=== PATIENT | female | born 1985 | race Two or more races ===

== ENCOUNTER 2020-05-12 14:13 | Emergency (ER) | payer BC ==
--- NOTE | 2020-05-12 15:17 | EDM.PDOC ---
ED HPI GENERAL MEDICAL PROBLEM - General Chief Complaint: Genitourinary Problem Stated Complaint: CANNOT PEE LOTS OF PAIN IN BACK 12 WEEKS PG Time Seen by Provider: 05/12/20 15:05 Source of Information: Reports: Patient History Limitations: Reports: No Limitations - History of Present Illness INITIAL COMMENTS - FREE TEXT/NARRATIVE: 35-year-old female went in the clinic for a OB ultrasound and is having trouble with urinary retention. She was so uncomfortable and could not pass any urine so they sent her over the emergency room. She has no fevers or chills, can only urinate just small amounts at a time. This is been an ongoing recurring problem for her because of significant uterine fibroids. Onset: Unknown/Unsure (Symptoms have waxed and waned for months, worse since her ) Duration: Waxing/Waning Location: Reports: Abdomen (Lower abdomen) - Related Data Allergies Allergy/AdvReac Type Severity Reaction Status Date / Time aspirin Allergy Itching Verified 05/12/20 15:09 Home Meds: Home Meds Ferrous Sulfate [Slow Release Iron] 1 tab PO DAILY 05/12/20 [History] Progesterone,Micronized [Endometrin] 100 mg PO DAILY 05/12/20 [History] Past Medical History HEENT History: Reports: Impaired Vision [employer]IPPING History: Reports: - Past Surgical History Female Surgical History: Reports: Section Social & Family History - Tobacco Use Tobacco Use Status *Q: Never Tobacco User ED ROS GENERAL - Review of Systems Review Of Systems: See Below Constitutional: Denies: Fever, Chills Respiratory: Reports: No Symptoms Cardiovascular: Reports: No Symptoms GI/Abdominal: Reports: Abdominal Pain : Reports: Urgency, Urinary Retention Skin: Reports: No Symptoms Neurological: Reports: No Symptoms ED EXAM, RENAL/ - Physical Exam Exam: See Below Exam Limited By: No Limitations General Appearance: Alert, Moderate Distress (Looks very uncomfortable) Respiratory/Chest: No Respiratory Distress, Lungs Clear Cardiovascular: Regular Rate, Rhythm GI/Abdominal: Other (Lower abdomen is painful but obese, urine retention or bladder distention is difficult to palpate) Neurological: Alert, Oriented Skin Exam: Warm, Dry Course - Vital Signs Last Recorded V/S: Last Vital Signs Temp 98.6 F 05/12/20 14:35 Pulse 83 05/12/20 14:35 Resp 21 H 05/12/20 14:35 BP 178/97 H 05/12/20 14:35 Pulse Ox 100 05/12/20 14:35 - Orders/Labs/Meds Labs: Laboratory Tests 05/12/20 Range/Units 15:10 Urine Color Yellow (YELLOW) Urine Appearance Clear (CLEAR) Urine pH 7.0 (5.0-8.0) Ur Specific [place] 1.015 (1.008-1.030) Urine Protein Negative (NEGATIVE) mg/dL Urine Glucose (UA) Negative (NEGATIVE) mg/dL Urine Ketones Negative (NEGATIVE) mg/dL Urine Occult Blood Negative (NEGATIVE) Urine Nitrite Negative (NEGATIVE) Urine Bilirubin Negative (NEGATIVE) Urine Urobilinogen 0.2 (0.2-1.0) EU/dL Ur Leukocyte Esterase Negative (NEGATIVE) Urine RBC 0-5 (0-5) Urine WBC 0-5 (0-5) Ur Epithelial Cells Not seen Amorphous Sediment Not seen Urine Bacteria Few Urine Mucus Not seen - Re-Assessments/Exams Free Text/Narrative Re-Assessment/Exam: 05/12/20 17:47 A bladder scan revealed almost a liter of urine in her bladder. A catheter was placed to release all the urine which resolved her symptoms. UA was negative, normal. This was discussed with her OB physician and he is going to reschedule the ultrasound at a later date. Departure - Departure Time of Disposition: 15:40 Disposition: Home, Self-Care 01 Clinical Impression: Retention, urine - Discharge Information Instructions: Acute Urinary Retention, Female Referrals: PCP,None [Primary Care Provider] - Forms: ED Department Discharge Care Plan Goals: Follow-up as scheduled. Sepsis Event Note (ED) - Evaluation Sepsis Screening Result: No Definite Risk - Focused Exam Vital Signs: Vital Signs Temp Pulse Resp BP Pulse Ox 05/12/20 14:35 98.6 F 83 21 H 178/97 H 100 05/12/20 14:33 98.6 F 83 21 H 178/97 H 100
== END 2020-05-12 15:38 | disposition home or self-care (01) ==
LOC: JP.ED 14:13
DX: O99.891 Other specified diseases and conditions complicating pregnancy (principal); R33.9 Retention of urine, unspecified; R10.30 Lower abdominal pain, unspecified; O99.211 Obesity complicating pregnancy, first trimester; Z88.8 Allergy status to other drugs, medicaments and biological substances; Z3A.12 12 weeks gestation of pregnancy
CPT/HCPCS: 51701; 81001; 99283